=== PATIENT | female | born 1940 | race Caucasian/White ===

== ENCOUNTER → 2016-08-20 | Outpatient (CLI) | payer MEDICARE, OTHER ==
--- NOTE | 2016-08-20 14:37 | RAD ---
DATE: 08/20/2016. EXAM: DIGITAL SCREEN BILAT W/CAD. HISTORY: Routine mammographic screening. Personal history of left breast cancer status post breast conservation therapy in 1994. COMPARISON: 08/08/2015. This study was interpreted with the benefit of Computerized Aided Detection (CAD). FINDINGS: The breast parenchyma heterogeneously dense, which could reduce sensitivity of mammography. There are no suspicious masses, microcalcifications or architectural distortion. Breast conservation therapy changes superolaterally on the left are stable. A dense parenchymal island laterally on the right CC view is also stable. Scattered calcifications elsewhere are stable and benign. BI-RADS CATEGORY: 2 BENIGN FINDING(S). RECOMMENDED FOLLOW-UP: 12M 12 MONTH FOLLOW-UP. PQRS compliance statement: Patient information was entered into a reminder system with a target due date 08/20/2017 for the next mammogram. Mammography is a sensitive method for finding small breast cancers, but it does not detect them all and is not a substitute for careful clinical examination. A negative mammogram does not negate a clinically suspicious finding and should not result in delay in biopsying a clinically suspicious abnormality. "Our facility is accredited by the [employer] Mammography [employer]."
== END | disposition home or self-care (01) ==
LOC: MAMMO 12:26
PROVIDERS: ATTEND Family Medicine
DX: Z12.31 Encounter for screening mammogram for malignant neoplasm of breast (principal); Z85.3 Personal history of malignant neoplasm of breast
CPT/HCPCS: G0202; 77067

== ENCOUNTER → 2017-01-31 | Outpatient (CLI) | payer MEDICARE, OTHER ==
--- NOTE | 2017-01-31 12:22 | KCIC ---
Three-view lumbar spine dated 01/31/2017. No comparison available. Clinical indication: Bilateral lower extremity neuropathy. Back stiffness. FINDINGS: AP, lateral and coned-down views of lumbosacral junction obtained. There is moderate S-shaped thoracolumbar scoliotic curvature. Evaluation is limited due to obliquity on the lateral images. Vertebral body heights are generally maintained. Sagittal alignment is not well assessed. There is moderate hypertrophic change of the superior and inferior endplates throughout with multilevel disc space narrowing and moderate lower lumbar facet arthropathy. IMPRESSION: 1. Limited exam. No apparent acute abnormality. 2. Moderate S-shaped scoliotic curvature. 3. Moderate multilevel spondylosis. Electronically signed by: Augusto Mancilla MD (01/31/2017 12:19 PM) [id number]
== END | disposition home or self-care (01) ==
LOC: KCIC 10:55
PROVIDERS: ATTEND Nurse Practitioner Family
DX: M47.896 Other spondylosis, lumbar region (principal); M43.8X5 Other specified deforming dorsopathies, thoracolumbar region; G57.91 Unspecified mononeuropathy of right lower limb; G57.92 Unspecified mononeuropathy of left lower limb
CPT/HCPCS: 72100